=== PATIENT | female | born 1995 | race Caucasian/White ===

== ENCOUNTER 2017-08-30 13:43 | Emergency (ER) | payer OTHER, SELFPAY ==
[2017-08-30 15:36] LABS: Urine Blood 3+ (NEG); Urine Glucose NEGATIVE (NEG); Urine Protein 3+ (NEG)
[2017-08-30] MEDS ORDERED: KETOROLAC 30 MG/ML INJ ONE (16:13)
[2017-08-30 16:38] LABS: Urine Bacteria 20-50 /HPF (<20); Urine Culture Reflex Order REFLEXED; Urine Mucus NS /HPF (NONE SEEN); Urine RBC >50 /HPF (NONE SEEN)
--- NOTE | 2017-08-30 17:07 | ER ---
Nurse's Notes [facility] Name: Marilou Avelar Age: 22 yrs Sex: Female : 1995 Arrival Date: 08/30/2017 Time: 13:44 Bed 8 Private MD: Diagnosis: Urinary tract infection, site not specified Presentation: 08/30 13:48 Presenting complaint: Patient states: I have been having vaginal bleeding and lower abd la1 cramping since this morning. Pt states LMP 07/13/2017. Unknown preg. Transition of care: patient was not received from another setting of care. Onset of symptoms was August 30, 2017. Initial Sepsis Screen: Does the patient meet any 2 criteria? No. Patient's initial sepsis screen is negative. Does the patient have a suspected source of infection? No. Patient's initial sepsis screen is negative. Care prior to arrival: None. 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 - Social history:: Smoking status: Patient uses tobacco products, smokes one pack cigarettes per day. Screenin:36 Abuse screen: Denies threats or abuse. Denies injuries from another. Nutritional sv screening: No deficits noted. Tuberculosis screening: No symptoms or risk factors identified. Fall Risk None identified. Assessment: 15:35 General: Appears in no apparent distress. uncomfortable, well developed, Behavior is sv calm, cooperative, appropriate for age. Pain: Complains of pain in suprapubic area Quality of pain is described as crampy, Pain began "this morning" Is intermittent. Neuro: Level of Consciousness is awake, alert, obeys commands, Oriented to person, place, time, situation, Moves all extremities. Full function Gait is steady, Speech is normal. Respiratory: Respiratory effort is even, unlabored, Respiratory pattern is regular, symmetrical. : Reports vaginal bleeding that is bright red, heavy flow since this morning. Derm: Skin is normal. Musculoskeletal: Range of motion: intact in all extremities. 16:18 Reassessment: Patient appears in no apparent distress at this time. No changes from sv previously documented assessment. Patient and/or family updated on plan of care and expected duration. Pain level reassessed. Patient is alert, oriented x 3, equal unlabored respirations, skin warm/dry/pink. Vital Signs: 13:49 BP 119 / 75; Pulse 78; Resp 16; Temp 98.4; Pulse Ox 100% on R/A; Weight 77.11 kg; la1 Height 5 ft. 1 in. (154.94 cm); 16:12 BP 112 / 70; Pulse 87; Resp 18; Pulse Ox 99% ; sv 13:49 Body Mass Index 32.12 (77.11 kg, 154.94 cm) la1 ED Course: 13:44 Patient arrived in ED. as 13:48 Triage completed. la1 13:49 Arm band placed on left wrist. la1 15:24 Destiny Ortega FNP-C is PHCP. kb 15:24 Adrian Fernandez MD is Attending Physician. kb 15:35 Namrata Gonzalez, PRIMITIVO is Primary Nurse. sv 15:36 Patient has correct armband on for positive identification. Bed in low position. Call sv light in reach. Adult w/ patient. Door closed. Warm blanket given. Head of bed elevated. 16:12 Awaiting lab results. sv Administered Medications: 16:18 CANCELLED (order changed): Pyridium 200 mg PO once sv 16:18 Drug: TORadol 60 mg Route: IM; Site: right gluteus; sv 17:24 Follow up: Response: No adverse reaction; Pain is decreased sg 17:24 Drug: Pyridium 200 mg Route: PO; sg 17:24 Drug: Macrobid 100 mg Route: PO; sg Outcome: 17:07 Discharge ordered by . kb 17:44 Patient left the ED. sg Addendum: 09/02/2017 08:52 Addendum: Culture Results: Positive urine culture. No further action required. Bacteria s s sensitive to prescribed antibiotic. Signatures: Destiny Ortega FNP-C EDUCATIONAL AIDE-Namrata Mon, PRIMITIVO LANGFORD Edward Bishop RN RN Alexandra Juarez Shelby, RN RN Erik Hector RN RN la
--- NOTE | 2017-08-30 17:07 | EDPHYS ---
Physician Documentation [facility] Name: Marilou Avelar Age: 22 yrs Sex: Female : 1995 Arrival Date: 08/30/2017 Time: 13:44 Bed 8 Private MD: ED Physician Adrian Fernandez HPI: 08/30 17:03 This 22 yrs old Female presents to ER via Ambulatory with complaints of kb Vaginal Pain. 17:03 The patient presents with urinary symptoms, dysuria, frequency, hematuria. Onset: The kb symptoms/episode began/occurred yesterday, and became worse today. Modifying factors: The symptoms are alleviated by nothing, the symptoms are aggravated by urinating. Associated signs and symptoms: Pertinent positives: dysuria, hematuria, urinary frequency. Severity of symptoms: At their worst the symptoms were moderate, in the emergency department the symptoms are unchanged. The patient has not experienced similar symptoms in the past. The patient has not recently seen a physician. 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 - Social history:: Smoking status: Patient uses tobacco products, smokes one pack cigarettes per day. ROS: 17:03 Constitutional: Negative for fever, chills, and weight loss, Cardiovascular: Negative kb for chest pain, palpitations, and edema, Respiratory: Negative for shortness of breath, cough, wheezing, and pleuritic chest pain, Abdomen/GI: Negative for abdominal pain, nausea, vomiting, diarrhea, and constipation, MS/Extremity: Negative for injury and deformity, Skin: Negative for injury, rash, and discoloration, Neuro: Negative for headache, weakness, numbness, tingling, and seizure. 17:03 : Positive for urinary symptoms, urinary frequency, hematuria, burning with urination. Exam: 17:02 Constitutional: This is a well developed, well nourished patient who is awake, alert, kb and in no acute distress. Head/Face: Normocephalic, atraumatic. Chest/axilla: Normal chest wall appearance and motion. Nontender with no deformity. No lesions are appreciated. Cardiovascular: Regular rate and rhythm with a normal S1 and S2. No gallops, murmurs, or rubs. Normal PMI, no JVD. No pulse deficits. Respiratory: Lungs have equal breath sounds bilaterally, clear to auscultation and percussion. No rales, rhonchi or wheezes noted. No increased work of breathing, no retractions or nasal flaring. Skin: Warm, dry with normal turgor. Normal color with no rashes, no lesions, and no evidence of cellulitis. MS/ Extremity: Pulses equal, no cyanosis. Neurovascular intact. Full, normal range of motion. Neuro: Awake and alert, GCS 15, oriented to person, place, time, and situation. Cranial nerves II-XII grossly intact. Motor strength 5/5 in all extremities. Sensory grossly intact. Cerebellar exam normal. Normal gait. 17:02 Abdomen/GI: Inspection: abdomen appears normal, Bowel sounds: normal, in all quadrants, Palpation: soft, in all quadrants, mild abdominal tenderness, in the suprapubic area. Vital Signs: 13:49 BP 119 / 75; Pulse 78; Resp 16; Temp 98.4; Pulse Ox 100% on R/A; Weight 77.11 kg; la1 Height 5 ft. 1 in. (154.94 cm); 16:12 BP 112 / 70; Pulse 87; Resp 18; Pulse Ox 99% ; sv 13:49 Body Mass Index 32.12 (77.11 kg, 154.94 cm) la1 MDM: 15:26 Patient medically screened. kb 17:02 Data reviewed: vital signs, nurses notes. Data interpreted: Pulse oximetry: on room air kb is 99 %. Interpretation: normal. Counseling: I had a detailed discussion with the patient and/or guardian regarding: the historical points, exam findings, and any diagnostic results supporting the discharge/admit diagnosis, lab results, the need for outpatient follow up, a family practitioner, to return to the emergency department if symptoms worsen or persist or if there are any questions or concerns that arise at home. 08/30 14:20 Order name: Urine Dipstick--Ancillary (enter results) eb 08/30 14:20 Order name: Urine --Ancillary (enter results) eb 08/30 15:44 Order name: Urine Microscopic Only; Complete Time: 16:43 kb 08/30 16:39 Order name: Urine Culture EDMS Administered Medications: 16:18 CANCELLED (order changed): Pyridium 200 mg PO once sv 16:18 Drug: TORadol 60 mg Route: IM; Site: right gluteus; sv 17:24 Follow up: Response: No adverse reaction; Pain is decreased sg 17:24 Drug: Pyridium 200 mg Route: PO; sg 17:24 Drug: Macrobid 100 mg Route: PO; sg Disposition: 08/31 09:06 Co-signature as Attending Physician, Adrian Fernandez MD I agree with the assessment and elsa plan of care. Disposition: 08/30/17 17:07 Discharged to Home. Impression: Urinary tract infection, site not specified. - Condition is Stable. - Discharge Instructions: Urinary Tract Infection, [id number]. - Prescriptions for Pyridium 200 mg Oral Tablet - take 1 tablet by ORAL route every 8 hours for 3 days; 9 tablet. Macrobid 100 mg Oral Capsule - take 1 capsule by ORAL route every 12 hours for 7 days; 14 capsule. - Medication Reconciliation Form, Thank You Letter, Antibiotic Education, Prescription Opioid Use form. - Follow up: Emergency Department; When: As needed; Reason: Worsening of condition. Follow up: Private Physician; When: 2 - 3 days; Reason: Recheck today's complaints, Continuance of care, Re-evaluation by your physician. Signatures: Dispatcher [employer] Destiny Dozier, PATTERN WEAVER-C PATTERN WEAVER-Namrata Mon RN RN sv Gay, Steven, RN RN sg Anderson, Corey, MD MD cha Attema, Lee RN RN la1 Corrections: (The following items were deleted from the chart) 08/30 16:18 16:13 Pyridium 200 mg PO once [address]. [facility] 16:18 16:18 Pyridium 200 mg PO once ordered. sv sv
[2017-08-30] MEDS ORDERED: PHENAZOPYRIDINE 100MG TAB PO ONE ×2 (17:20→17:21)
[2017-08-30] MEDS ORDERED: NITROFURAN MACRO 100 MG CAP PO ONE (17:20)
== END 2017-08-30 17:44 | disposition home or self-care (01) ==
LOC: ER 13:43
DX: N39.0 Urinary tract infection, site not specified (principal)
CPT/HCPCS: 81003; 81015; 81025; 87077; 87086; 87088; 87186; 96372; 99283

== ENCOUNTER 2017-08-31 23:38 | Emergency (ER) | payer OTHER, SELFPAY ==
[2017-08-31] MEDS ORDERED: SMZ./TMP. 800/160 MG TABLET ONE (23:54)
[2017-08-31] MEDS ORDERED: ONDANSETRON 4 MG (ODT) TAB ONE (23:55)
--- NOTE | 2017-09-01 00:28 | ER ---
Nurse's Notes [facility] Name: Marilou Avelar Age: 22 yrs Sex: Female : 1995 Arrival Date: 08/31/2017 Time: 23:40 Bed 12 Private MD: Matt Leslie Diagnosis: Urinary tract infection, site not specified;Vomiting, unspecified Presentation: 08/31 23:45 Presenting complaint: Patient states: she was seen here yesterday and was diagnosed aa1 with a UTI and given antibiotics and reports she started vomiting after she began taking the medication. Transition of care: patient was not received from another setting of care. Onset of symptoms was August 30, 2017. Initial Sepsis Screen: Does the patient meet any 2 criteria? No. Patient's initial sepsis screen is negative. Does the patient have a suspected source of infection? Yes: Dysuria/Frequency/Urgency/UTI. Care prior to arrival: None. 23:45 Method Of Arrival: Ambulatory aa1 23:45 Acuity: SHELBIE 4 aa1 Triage Assessment: 23:47 General: Appears in no apparent distress. comfortable, Behavior is calm, cooperative, aa1 appropriate for age. 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 - Social history:: Smoking status: Patient uses tobacco products, smokes one pack cigarettes per day. Screenin:57 Abuse screen: Denies threats or abuse. Denies injuries from another. Nutritional lk1 screening: No deficits noted. Tuberculosis screening: No symptoms or risk factors identified. Fall Risk None identified. Assessment: 09/01 00:02 General: Appears in no apparent distress. Behavior is calm, cooperative, appropriate lk1 for age. Pain: Denies pain. Neuro: Level of Consciousness is awake, alert, obeys commands, Oriented to person, place, time, situation, Reports dizziness. Cardiovascular: Capillary refill is brisk Patient's skin is warm and dry. Respiratory: Airway is patent Respiratory effort is even, unlabored, Respiratory pattern is regular, symmetrical. GI: Abdomen is non-distended, Reports nausea, vomiting. : No signs and/or symptoms were reported regarding the genitourinary system. EENT: No signs and/or symptoms were reported regarding the EENT system. Derm: No signs and/or symptoms reported regarding the dermatologic system. Musculoskeletal: No signs and/or symptoms reported regarding the musculoskeletal system. Vital Signs: 08/31 23:47 BP 118 / 76; Pulse 82; Resp 18; Temp 98.1; Pulse Ox 99% on R/A; Weight 77.11 kg; Height aa1 5 ft. 1 in. (154.94 cm); 23:47 Body Mass Index 32.12 (77.11 kg, 154.94 cm) aa1 ED Course: 23:40 Patient arrived in ED. am2 23:42 Matt Leslie MD is Private Physician. am2 23:45 Destiny Ortega FNP-C is [facility]. kb 23:45 Uriel Mckinley MD is Attending Physician. kb 23:46 Triage completed. aa1 23:47 Arm band placed on left wrist. Patient placed in an exam room, on a stretcher. aa1 23:53 Jennifer Riley, RN is Primary Nurse. lk1 23:57 Patient has correct armband on for positive identification. Bed in low position. Call lk1 light in reach. Adult w/ patient. 23:58 No provider procedures requiring assistance completed. Patient did not have IV access lk1 during this emergency room visit. Administered Medications: 23:57 Drug: Zofran 4 mg Route: PO; lk1 09/01 00:26 Follow up: Response: No adverse reaction; Marked relief of symptoms lk1 08/31 23:57 Drug: Bactrim (160 mg-800 mg (DS) 1 tablet Route: PO; lk1 09/01 00:26 Follow up: Response: No adverse reaction lk1 Outcome: 00:27 Discharge ordered by . kb 00:37 Discharged to home ambulatory, with significant other. lk1 00:37 Condition: good 00:37 Discharge instructions given to patient, significant other, Instructed on discharge instructions, follow up and referral plans. medication usage, safety practices, Demonstrated understanding of instructions, follow-up care, medications, Prescriptions given X 2. 00:37 Patient left the ED. lk1 Signatures: Destiny Ortega, LASER TECHNICIAN-C LASER TECHNICIAN-CkKiley Lott, RN RN aa1 Jennifer Riley RN RN lk1 Terri Sellers am2
--- NOTE | 2017-09-01 00:29 | EDPHYS ---
Physician Documentation [facility] Name: Marilou Avelar Age: 22 yrs Sex: Female : 1995 Arrival Date: 08/31/2017 Time: 23:40 Bed 12 Private MD: Matt Leslie ED Physician Uriel Mckinley HPI: 08/31 23:51 This 22 yrs old Female presents to ER via Ambulatory with complaints of kb Medication side effect, Vomiting. 23:51 The patient presents with vomiting. Onset: The symptoms/episode began/occurred last kb night. Associated signs and symptoms: Pertinent positives: vomiting. Possible causes: macrobid. At home the patient or guardian has treated the symptoms with nothing. Severity of symptoms: At their worst the symptoms were mild in the emergency department the symptoms are unchanged. The patient has not experienced similar symptoms in the past. The patient has been recently seen at the [facility] Emergency Department, yesterday. Pt reports she started macrobid last night and has had a few episodes of vomiting since taking it. . 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 - Social history:: Smoking status: Patient uses tobacco products, smokes one pack cigarettes per day. ROS: 23:50 Constitutional: Negative for fever, chills, and weight loss, Cardiovascular: Negative kb for chest pain, palpitations, and edema, Respiratory: Negative for shortness of breath, cough, wheezing, and pleuritic chest pain, Back: Negative for injury and pain, MS/Extremity: Negative for injury and deformity, Skin: Negative for injury, rash, and discoloration, Neuro: Negative for headache, weakness, numbness, tingling, and seizure. 23:50 Abdomen/GI: Positive for nausea and vomiting. Exam: 23:50 Constitutional: This is a well developed, well nourished patient who is awake, alert, kb and in no acute distress. Head/Face: Normocephalic, atraumatic. Chest/axilla: Normal chest wall appearance and motion. Nontender with no deformity. No lesions are appreciated. Cardiovascular: Regular rate and rhythm with a normal S1 and S2. No gallops, murmurs, or rubs. Normal PMI, no JVD. No pulse deficits. Respiratory: Lungs have equal breath sounds bilaterally, clear to auscultation and percussion. No rales, rhonchi or wheezes noted. No increased work of breathing, no retractions or nasal flaring. Abdomen/GI: Soft, non-tender, with normal bowel sounds. No distension or tympany. No guarding or rebound. No evidence of tenderness throughout. Back: No spinal tenderness. No costovertebral tenderness. Full range of motion. Skin: Warm, dry with normal turgor. Normal color with no rashes, no lesions, and no evidence of cellulitis. MS/ Extremity: Pulses equal, no cyanosis. Neurovascular intact. Full, normal range of motion. Neuro: Awake and alert, GCS 15, oriented to person, place, time, and situation. Cranial nerves II-XII grossly intact. Motor strength 5/5 in all extremities. Sensory grossly intact. Cerebellar exam normal. Normal gait. Vital Signs: 23:47 BP 118 / 76; Pulse 82; Resp 18; Temp 98.1; Pulse Ox 99% on R/A; Weight 77.11 kg; Height aa1 5 ft. 1 in. (154.94 cm); 23:47 Body Mass Index 32.12 (77.11 kg, 154.94 cm) aa1 MDM: 23:49 Patient medically screened. kb 23:50 Data reviewed: vital signs, nurses notes. Data interpreted: Pulse oximetry: on room air kb is 99 %. Interpretation: normal. 23:52 Counseling: I had a detailed discussion with the patient and/or guardian regarding: the kb historical points, exam findings, and any diagnostic results supporting the discharge/admit diagnosis, the need for outpatient follow up, a family practitioner, to return to the emergency department if symptoms worsen or persist or if there are any questions or concerns that arise at home. 09/01 00:27 ED course: Pt feels better now. Tolerating PO intake. kb 08/31 23:50 Order name: PO challenge; Complete Time: 23:57 kb Administered Medications: 08/31 23:57 Drug: Zofran 4 mg Route: PO; lk1 09/01 00:26 Follow up: Response: No adverse reaction; Marked relief of symptoms lk1 08/31 23:57 Drug: Bactrim (160 mg-800 mg (DS) 1 tablet Route: PO; lk1 09/01 00:26 Follow up: Response: No adverse reaction lk1 Disposition: 00:55 Co-signature as Attending Physician, Uriel Mckinley MD I agree with the assessment and kdr plan of care. Disposition: 09/01/17 00:27 Discharged to Home. Impression: Urinary tract infection, site not specified, Vomiting, unspecified. - Condition is Stable. - Discharge Instructions: Urinary Tract Infection, [id number]. - Prescriptions for Zofran 4 mg Oral Tablet - take 1 tablet by ORAL route every 6 hours As needed; 20 tablet. Bactrim DS 800- 160 mg Oral Tablet - take 1 tablet by ORAL route every 12 hours for 7 days; 14 tablet. - Medication Reconciliation Form, Thank You Letter, Antibiotic Education, Prescription Opioid Use form. - Follow up: Emergency Department; When: As needed; Reason: Worsening of condition. Follow up: Private Physician; When: 2 - 3 days; Reason: Recheck today's complaints, Continuance of care, Re-evaluation by your physician. Signatures: Destiny Ortega FNP-C FNP-Kiley Amanda, RN RN aa1 Uriel Mckinley MD MD [facility] Jennifer Riley RN RN lk1
== END 2017-09-01 00:37 | disposition home or self-care (01) ==
LOC: ER 23:38
DX: N39.0 Urinary tract infection, site not specified (principal); F17.210 Nicotine dependence, cigarettes, uncomplicated; Z88.0 Allergy status to penicillin
CPT/HCPCS: 99283

== ENCOUNTER 2017-10-05 02:58 | Emergency (ER) | payer OTHER, SELFPAY ==
--- OUTSIDE RECORDS SUMMARY | 2017-10-05 03:00 | XMS REPORT | Summary of Care ---
:1995 Author Name PIETER SHRESTHA M.D. Address Unavailable Unavailable , Care Team Providers Name Role Phone PIETER SHRESTHA M.D. Unavailable Unavailable Kimberley Cee R.N. Unavailable Unavailable Unavailable Unavailable Unavailable Functional Status Name Dates Details Functional status health issues are not documented Status: Name Dates Details Cognitive status health issues are not documented Status: Problems Name Dates Details Polycystic ovaries (256.4, E28.2) Status: Active Positive home test (V22.2) Status: Active Oligomenorrhea (626.1, N91.5) Status: Active Infertility, female (628.9, N97.9) Status: Active Medications Name Dates Details MetFORMIN HCl ER 500 MG Oral Tablet Extended Release 24 Hour TAKE 3 TABLETS ONCE DAILY WITH THE EVENING MEAL Quantity: 270 Refills: 3 PIETER SHRESTHA M.D. Start : 17-Sep-2016 Active MedroxyPROGESTERone Acetate 10 MG Oral Tablet TAKE 1 TABLET DAILY FOR 10 DAYS EACH MONTH. Quantity: 10 Refills: 2 PIETER SHRESTHA M.D. Start : 01-Jul-2017 Active ClomiPHENE Citrate 50 MG Oral Tablet TAKE 1 TABLET BY MOUTH DAYS 3 TO 7 OF CYCLE Quantity: 5 Refills: 2 PIETER SHRESTHA M.D. Start : 01-Jul-2017 Active Allergies and Adverse Reactions Name Dates Details No Known Drug Allergies (Allergy) Status: Active Past Medical History Name Dates Details History of High blood cholesterol (272.0, E78.00) Status: Resolved History of migraine (V12.49, Z86.69) Status: Resolved Procedures Procedure Dates Details History of no history of surgery Completed Immunization Name Dates Details Immunizations not documented Family History Name Dates Details Family history of malignant neoplasm of breast (V16.3, Z80.3) Status: Active Name Dates Details Family history of diabetes mellitus (V18.0, Z83.3) Status: Active Social History Name Dates Details - Status: Name Dates Details Former smoker Vital Signs Date Test Result Details [id number] BP Systolic 114 mm[Hg] Status: Comments: Location: [facility]; Position: Sitting BP Diastolic 78 mm[Hg] Status: Comments: Location: [facility]; Position: Sitting Height 61.5 in Status: Weight 181.375 lb Status: Body Mass Index Calculated 33.72 kg/m2 Status: Body Surface Area Calculated 1.82 m2 Status: Heart Rate 102 /min Status: Results Date Description Value Details Results not documented Plan of Care Name Dates Details Planned Observations Planned Goals not documented Interventions Provided Medication ChangesClomiPHENE Citrate 50 MG Oral Tablet - StartMedroxyPROGESTERone Acetate 10 MG Oral Tablet - Start Instructions Name Dates Details Instructions not documented Encounters Appointment; PIETER SHRESTHA M.D. On: 17-Sep-2016 10:30 Encounter Diagnosis: Problem not documented Appointment; PIETER SHRESTHA M.D. On: 18-Dec-2016 10:45 Encounter Diagnosis: Problem not documented Appointment; PIETER SHRESTHA M.D. On: 11-Jun-2017 15:30 Encounter Diagnosis: Problem not documented
== END 2017-10-05 03:42 | disposition left against medical advice (07) ==
LOC: ER 02:58
DX: Z53.21 Procedure and treatment not carried out due to patient leaving prior to being seen by health care provider (principal)